=== PATIENT | female | born 2000 | race African-American/Black ===

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

== ENCOUNTER 2019-12-03 23:52 | Emergency (ER) | payer OTHER, SELFPAY ==
[2019-12-04] MEDS ORDERED: Ibuprofen 800 MG TAB ONE (00:58)
== END 2019-12-04 01:02 | disposition home or self-care (01) ==
LOC: ERS 23:52
DX: M79.641 Pain in right hand (principal); M79.642 Pain in left hand
CPT/HCPCS: 99281

== ENCOUNTER 2021-08-23 08:34 | Outpatient (CLI) | payer MEDICAID | END 2021-08-23 08:35 | disposition home or self-care (01) | LOC: BICULT 08:34 | PROVIDERS: ATTEND Nurse Practitioner Women's Health | DX: R10.2 Pelvic and perineal pain (principal); N88.8 Other specified noninflammatory disorders of cervix uteri | CPT/HCPCS: 76856 ==